=== PATIENT | female | born 1945 | race Two or more races ===

== ENCOUNTER → 2016-12-17 | Outpatient (CLI) | payer OTHER ==
[~2016-12-17] MED LIST: CLORTALIDONA
--- NOTE | ~2016-12-17 | US6 ---
[facility] A Service of [facility] RADIOLOGY TEXT RESULTS PATIENT: YANDEL LEGER LOCATION: [facility] : 47 UNIT #: [id number] AGE: [address]: Jesus Gordon MD SEX: F ORDER DR: [id number] [facility] [address] [place], [place] [address] [id number] O MR#: [id number] Acc #: [id number] NAME: YANDEL LEGER : 1945 SEX: F STUDY DATE/TIME: 12/17/2016 9:27 UNIT: [facility] ROOM: STUDY DESCRIPTION: US Abdominal Limited Attending Physician: Jesus Gordon M.D. Referring Physician: Jesus Gordon M.D. Ordering Physician: Jesus Gordon M.D. Primary Care Physician: [facility] IMAGING REPORT This report is preliminary unless electronic signature is present EXAM Right upper quadrant abdominal ultrasound INDICATION Right upper quadrant abdominal pain for the past several years. PROCEDURE Guzman-scale and Doppler imaging right upper quadrant of the abdomen. COMPARISON None FINDINGS Visualized portions of pancreas unremarkable. Unremarkable gallbladder. Liver measures 16.5 cm. Common duct measures 3.0 mm. The right kidney measures 10.2 cm. There is a 3.0 mm calculus in the right mid kidney. The liver shows slightly increased echotexture compared with the right kidney. IMPRESSION 1. Slightly increased liver echotexture suggesting mild steatosis. 2. Tiny nonobstructing calculus in the right kidney. Dictated by... Karthikeyan Stock M.D. THIS IS AN ELECTRONICALLY VERIFIED REPORT Karthikeyan Stock M.D. at 12/18/2016 6:50 AM Flo TD: 12/17/2016 12:10 JOB #: [id number] [facility] RADIOLOGY TEXT RESULTS PATIENT: YANDEL LEGER LOCATION: [facility] : 47 UNIT #: [id number] AGE: [address]: Jesus Gordon MD SEX: F ORDER DR: MEDICAL IMAGING REPORT Page 1 of 1 COPY
== END | disposition home or self-care (01) ==
LOC: CGUS 08:57
DX: R10.11 Right upper quadrant pain (principal); R11.0 Nausea; K59.00 Constipation, unspecified; R12 Heartburn; R63.4 Abnormal weight loss; N20.0 Calculus of kidney; Z86.010 Personal history of colon polyps; Z88.0 Allergy status to penicillin; Z88.1 Allergy status to other antibiotic agents
CPT/HCPCS: 76705

== ENCOUNTER → 2017-01-28 | Outpatient (CLI) | payer OTHER ==
--- NOTE | ~2017-01-28 | NM22 ---
[facility] A Service of [facility] RADIOLOGY TEXT RESULTS PATIENT: YANDEL LEGER LOCATION: [facility] : 47 UNIT #: [id number] AGE: [address]: Jesus Gordon MD SEX: F ORDER DR: [id number] [facility] [address] [place], [place] [address] [id number] O MR#: [id number] Acc #: [id number] NAME: YANDEL LEGER : 1945 SEX: F STUDY DATE/TIME: 01/28/2017 10:12 UNIT: [facility] ROOM: STUDY DESCRIPTION: PEPE Hepatobiliary W GB Pharm Attending Physician: Jesus Gordon M.D. Referring Physician: Jesus Gordon M.D. Ordering Physician: Jesus Gordon M.D. Primary Care Physician: Patricia Connell A.P.R.N. MEDICAL IMAGING REPORT This report is preliminary unless electronic signature is present EXAM HIDA scan with Kinevac CCK 01/28/2017 HISTORY Right upper quadrant abdominal pain, generalized abdominal pain and epigastric pain with bloating and diarrhea after every meal for 4 years, occasional nausea and vomiting. FINDINGS The patient received an intravenous injection of 5.37 mCi of technetium 99m tagged Choletec for hepatobiliary imaging. 1 hour following injection of the radiopharmaceutical the patient received an intravenous injection 1.3 mcg of Kinevac. There is homogeneous distribution of the radiotracer throughout the liver. Gallbladder activity was seen by 30 minutes postinjection of the radiopharmaceutical. Following Kinevac injection the gallbladder ejection fraction was 74.5% (normal is greater than 30%). IMPRESSION Normal HIDA scan with gallbladder ejection fraction of 74.5%. Dictated by... Mahesh Vivas M.D. THIS IS AN ELECTRONICALLY VERIFIED REPORT Mahesh Vivas M.D. at 01/29/2017 8:03 AM OMAR/cheko TD: 01/28/2017 15:10 JOB #: [id number] MEDICAL IMAGING REPORT Page 1 of 1 COPY
== END | disposition home or self-care (01) ==
LOC: CNUC 09:24
DX: R10.84 Generalized abdominal pain (principal); Z88.1 Allergy status to other antibiotic agents; Z88.0 Allergy status to penicillin
CPT/HCPCS: 78227; 82947; A9537; J2805

== ENCOUNTER → 2017-02-13 | Outpatient (CLI) | payer OTHER ==
--- NOTE | ~2017-02-13 | NM19 ---
[facility] A Service of [facility] RADIOLOGY TEXT RESULTS PATIENT: YANDEL LEGER LOCATION: [facility] : 47 UNIT #: [id number] AGE: [address]: Jesus Gordon MD SEX: F ORDER DR: [id number] [facility] [address] [place], [place] [address] [id number] O MR#: [id number] Acc #: [id number] NAME: YANDEL LEGER : 1945 SEX: F STUDY DATE/TIME: 02/13/2017 10:28 UNIT: [facility] ROOM: STUDY DESCRIPTION: MD Gastric Emptying Study Attending Physician: Jesus Gordon M.D. Referring Physician: Jesus Gordon M.D. Ordering Physician: Jesus Gordon M.D. Primary Care Physician: Patricia Connell A.P.R.N. MEDICAL IMAGING REPORT This report is preliminary unless electronic signature is present EXAM Radionuclide gastric emptying scan. HISTORY Pain. Nausea, diarrhea, constipation. Diarrhea sometimes white, bloating, right lower quadrant and epigastric pain, weight loss, acid reflux, symptoms have been going on for years. History of multiple myeloma diagnosed 2 years ago and underwent chemotherapy and radiation. Prior . TECHNIQUE Following ingestion of 582 mcCi technetium 99m sulfur colloid admixed in 2 scrambled eggs, anterior and posterior views of the abdomen were obtained at 0, 60, 120, 240 minutes post-ingestion. Region of interest drawn around stomach and time-activity curve constructed. Percent remaining at time intervals as follows: 60 minutes--66%, 120 minutes--36%, 240 minutes--1%. Percent empty at time intervals as follows: 60 minutes--34%, 120 minutes--64%, 240 minutes--99%. IMPRESSION 1. Two hour solid phase gastric emptying is 64%. Normal is greater than 60%. Four hour solid phase gastric emptying is 99%. Normal is greater than 90%. Dictated by... Gabriel Wakefield M.D. THIS IS AN ELECTRONICALLY VERIFIED REPORT Gabriel Wakefield M.D. at 02/16/2017 8:13 AM Fausto [facility]. [facility] A Service of [facility] RADIOLOGY TEXT RESULTS PATIENT: YANDEL LEGER [facility] #: [id number] : 47 UNIT #: [id number] AGE: [address]: Jesus Gordon MD SEX: F ORDER DR: TD: 02/13/2017 22:17 JOB #: [id number] MEDICAL IMAGING REPORT Page 1 of 1 COPY
== END | disposition home or self-care (01) ==
LOC: CNUC 09:44
DX: R10.11 Right upper quadrant pain (principal); R10.84 Generalized abdominal pain; R12 Heartburn; Z88.0 Allergy status to penicillin; Z88.1 Allergy status to other antibiotic agents
CPT/HCPCS: 78264; A9541

== ENCOUNTER 2017-02-19 10:00 | Emergency (ER) | payer OTHER | END 2017-02-19 10:45 | disposition home or self-care (01) | LOC: CFTX 10:00 → CED 10:00 → CFTX 10:35 | DX: B02.9 Zoster without complications (principal); E11.9 Type 2 diabetes mellitus without complications; Z88.0 Allergy status to penicillin | CPT/HCPCS: 99282 ==

== ENCOUNTER → 2017-05-22 | Outpatient (CLI) | payer OTHER ==
--- NOTE | ~2017-05-22 | CR211 ---
[facility] A Service of [facility] RADIOLOGY TEXT RESULTS PATIENT: YANDEL LEGER LOCATION: [facility] : 47 UNIT #: [id number] AGE: [address]: Blanca Mendoza MD SEX: F ORDER DR: [id number] [place] [id number] [place], [place] [address] [id number] O MR#: [id number] Acc #: [id number] NAME: YANDEL LEGER : 1945 SEX: F STUDY DATE/TIME: 05/22/2017 16:06 UNIT: [facility] ROOM: STUDY DESCRIPTION: CR Ribs Uni 2 View W PA Ch Rt Attending Physician: Blanca Mendoza M.D. Referring Physician: Blanca Mendoza M.D. Ordering Physician: Blanca Mendoza M.D. Primary Care Physician: Blanca Mendoza M.D. MEDICAL IMAGING REPORT This report is preliminary unless electronic signature is present EXAM Frontal chest and right rib series 05/22/2017 INDICATIONS 71-year-old female with rib pain symptoms began 3 months ago. No known injury. Patient had shingles 3 months ago. TECHNIQUE Frontal chest and right rib series was performed. 3 views of the ribs were obtained. Comparison 10/27/2007. FINDINGS Cardiac silhouette within normal limits. Vascularity is unremarkable. Lung volumes are low but there is no effusion pneumothorax or dense consolidation. No distinct rib fracture identified. Probable radiopaque tablet in the right mid abdomen. There are atherosclerotic calcifications of the splenic artery and aorta. IMPRESSION 1. Low-volume image otherwise negative frontal chest. 2. No distinct rib fracture. 3. Atherosclerotic disease. Dictated by... Bacilio Mesa M.D. THIS IS AN ELECTRONICALLY VERIFIED REPORT Bacilio Mesa M.D. at 05/23/2017 6:50 AM PRASHANTH/alonzo TD: 05/23/2017 05:27 [facility] A Service of [facility] RADIOLOGY TEXT RESULTS PATIENT: YANDEL LEGER LOCATION: [facility] #: [id number] : 47 UNIT #: [id number] AGE: [address]: Blanca Mendoza MD SEX: F ORDER DR: JOB #: [id number] MEDICAL IMAGING REPORT Page 1 of 1 COPY
== END | disposition home or self-care (01) ==
LOC: CRAD 15:47
DX: R07.9 Chest pain, unspecified (principal)
CPT/HCPCS: 71101